=== PATIENT | female | born 1940 | race Caucasian/White ===

== ENCOUNTER 2019-01-29 09:59 | Outpatient (CLI) | payer MEDICARE ==
--- NOTE | 2019-01-29 12:27 | RAD ---
FIVE VIEWS CERVICAL SPINE: HISTORY: Neck pain. Neck tightness and numbness. Cervical radiculopathy. FINDINGS: AP, open-mouth, lateral neutral, lateral flexion and lateral extension views of cervical spine are shi bmitted. On the AP projection, there is mild facet hypertrophy. No malalignment. In the open-mouth projection, lateral masses of C1 and C2 are difficult to assess, with respect to th e right side. Left lateral mass of C1 and C2 articulate appropriately. Limited evaluation of the odontoid process. In the neutral position, no significant spondylolisthesis. Upon extension and flexion, no abnormal mo tion. Predental space is normal. No prevertebral soft tissue swelling. Moderate degenerative change at C5-C6. Mild to moderate degenerative change at C6-C7. IMPRESSION: Degenerative changes of the cervical spine as described above. Further evaluation with MRI if clinica lly warranted. Transcribed Date/Time: 01/29/2019 12:40 PM
== END 2019-01-29 10:00 | disposition home or self-care (01) ==
LOC: TBSIIMAG 09:59
PROVIDERS: ATTEND Surgery
DX: M47.22 Other spondylosis with radiculopathy, cervical region (principal); M54.2 Cervicalgia
CPT/HCPCS: 72050

== ENCOUNTER 2020-07-11 18:15 | Inpatient (IN) | payer MEDICARE ==
[2020-07-11] MEDS ORDERED: Propofol 1,000 MG/100 ML VIAL IV ONE (18:21)
[2020-07-11 18:42] LABS: #Lymphocytes 1.1 thou/uL (1.20-3.40); #Monocytes 0.8 thou/uL (0.11-0.59); #Neutrophils 15.4 thou/uL (1.40-6.50); %Eosinophils 0.1 % (0.0-10.0); %Lymphocytes 6.5 % (21.0-51.0); %Monocytes 4.6 % (0.0-10.0); %Neutrophils 88.8 % (42.0-75.0); Hemoglobin 13.2 g/dL (12.0-16.0); Mean Corpuscular HGB CONC 34.1 g/dL (32.0-36.0); Mean Corpuscular Hemoglobin 32.8 pg (27.0-31.0); Mean Corpuscular Volume 95.9 fL (78.0-98.0); Mean Platelet Volume 7.5 fL (7.4-10.4); Platelet Count 228 thou/uL (130-400); RBC Distribution Width 11.7 % (11.5-14.5); Red Blood Cell (RBC) Count 4.02 mill/uL (4.20-5.40); White Blood Cell (WBC) Count 17.4 thou/uL (4.8-10.8)
[2020-07-11] MEDS ORDERED: Fentanyl CADD 100 ML IV SCH ×2 (18:45→20:45)
[2020-07-11 18:51] LABS: Bilirubin Negative (Negative); Blood, Urine Negative (Negative); Clarity Clear (Clear); Glucose, Urine (Dipstick) 500 mg/dL (Negative); Ketone, Urine 10 mg/dL (Negative); Leukocyte Negative Leu/uL (Negative); Nitrite Negative (Negative); Protein, Urine (Dipstick) Negative (Neg-Trace); Urobilinogen Normal mg/dL (Less than 2); pH, Urine 6.5 (5.0-9.0)
--- NOTE | 2020-07-11 18:55 | RAD ---
PORTABLE CHEST: 07/11/20 PROVIDED CLINICAL HISTORY: Altered mental status. FINDINGS: No comparisons. The cardiac and mediastinal silhouette is within normal limits. Median sternotomy ellie nges, and atherosclerosis are demonstrated. Endotracheal tube is seen, tip of which terminates in the region of the thoracic inlet. Enteric catheter is noted, the tip of which is not visualized but is b elow the diaphragm. No focal consolidation, pleural fluid or pneumothorax evident. The supine nature of the examination is not sensitive for detection of pleural fluid or pneumothorax. IMPRESSION: No evidence for an acute cardiopulmonary process. POS: ARIELA
[2020-07-11 18:58] LABS: Amphetamine Not Detected (NotDetected); Barbiturates Screen Not Detected (NotDetected); Benzodiazepine Screen Not Detected (NotDetected); Cocaine Metabolite Screen Not Detected (NotDetected); Medtox Control Line Valid? VALID (VALID); Medtox Reader # READER 4; Methadone Not Detected (NotDetected); Methamphetamine Not Detected (NotDetected); Opiate Screen Not Detected (NotDetected); Oxycodone Screen Not Detected (NotDetected); Phencyclidine (PCP) Not Detected (NotDetected); THC/Cannabinoid Screen Not Detected (NotDetected); Tricyclic Screen Not Detected (NotDetected)
--- NOTE | 2020-07-11 18:59 | CT ---
CT head noncontrast HISTORY: Altered mental status. FINDINGS: Ventricular system is diffusely distended and predominantly filled with hyperdense material . The fourth ventricle measures up to 2.4 cm transverse diameter. Centered within the medial aspect of the left frontal lobe is an irregular shaped hyperdense heterogeneous mass measuring up to 6.3 cm x 4.4 cm greatest diameters. Appearance of acute hematoma. Very small amount of subarachnoid hemorrhage. Diffuse effacement of the cerebral and cerebellar sulci . Mucosal thickening and nonspecific hyperdense material within the paranasal sinuses. IMPRESSION : Very large left frontal acute intraparenchymal hematoma with intraventricular extension, developing h ydrocephalus, and severe cerebral edema. Findings were called to Dr. Posey in the emergency department at 1852 hours. Code CR.
[2020-07-11 19:00] LABS: ALT (SGPT) 17 U/L (8-55); AST (SGOT) 30 U/L (5-34); Albumin 4.1 g/dL (3.4-4.8); Alkaline Phosphatase 93 U/L (40-110); Anion Gap 15 mmol/L (10-20); BUN (Urea Nitrogen) 8 mg/dL (9.8-20.1); Bilirubin, Total 0.5 mg/dL (0.2-1.2); Calc. Creatinine Clearance 0 mL/min (70-130); Calcium 8.5 mg/dL (7.8-10.44); Carbon Dioxide 22 mmol/L (23-31); Chloride 107 mmol/L (98-107); Globulin 3.4 g/dL (2.4-3.5); Glucose 189 mg/dL (83-110); Protein, Total 7.5 g/dL (5.8-8.1); Sodium 141 mmol/L (136-145)
--- NOTE | 2020-07-11 19:03 | CT ---
CT cervical spine noncontrast HISTORY: Fall. Injury. FINDINGS: Vertebral body heights and alignment are maintained. Multilevel mild disc space narrowing a nd osteophytosis. No acute fracture or dislocation. Cervicothoracic junction is intact. Nasogastric tube and endotracheal catheter partially visualized. Leftward displacement superiorly fav ored to be related to the patient's tongue. Intracranial hemorrhage better detailed on dedicated CT head. IMPRESSION : No acute cervical spine abnormalities are demonstrated.
[2020-07-11 19:08] LABS: Acetaminophen Less than 6.0 mcg/mL (10.0-30.0); Alcohol Less than 10 mg/dL (Less than 10); Magnesium 1.6 mg/dL (1.6-2.6); Potassium 2.9 mmol/L (3.5-5.1); Salicylate Less than 8.0 mg/dL (15.0-30.0)
[2020-07-11 19:28] LABS: INR-International Normal Ratio 1.2; PTT 27.6 sec (22.9-36.1)
[2020-07-11] MEDS ORDERED: niCARdipine 20MG In NaCl 20 MG/200 ML BAG ONE (19:37)
[2020-07-11] MEDS ORDERED: Dexamethasone 10 MG/ML VIAL ONE (19:41)
[2020-07-11] MEDS ORDERED: EPINEPHrine 1 MG/10 ML Abboject SYRINGE ONE (19:52)
[2020-07-11 20:16] LABS: SARS-CoV-2 NAA Rapid Test Not Detected (NotDetected)
[2020-07-11 20:27] LABS: Actual Bicarbonate (HCO3a) 20.6 mEq/L (22-28); Analyzer IN Cardio ER; Base Excess (BEa) -3.6 mEq/L (-2.0 to +3.0); CO2 Tension 34.6 mmHg (35.0-45.0); Calcium, Ionized (arterial) 1.14 mmol/L (1.12-1.30); Carboxyhemoglobin (COHb) 0.3 gm% (0.0-3.0); O2 Tension (PaO2), arterial 158.5 mmHg (> 70.0); Potassium - ABG Lab 2.99 mmol/L (3.70-5.30); pH, Arterial 7.39 (7.35-7.45)
[2020-07-11 20:28] LABS: Puncture Site RBA
[2020-07-11] MEDS ORDERED: Dextrose 50% Abboject 50 ML SYRINGE SLOW IVP PRN (20:28)
[2020-07-11] MEDS ORDERED: HumaLOG 300 UNITS/3 ML VIAL SC PRN (20:28)
[2020-07-11] MEDS ORDERED: Dextrose 5% in Water 1,000 ML IV PRN (20:28)
[2020-07-11] MEDS ORDERED: Norepinephrine 8 MG/0.9% NS 250 ML ONE (20:29)
[2020-07-11] MEDS ORDERED: Ventilator Sedation Protocol 1 EACH FS SCH (20:30)
[2020-07-11] MEDS ORDERED: Fentanyl BOLUS 250 ML IVPB PRN (20:45)
[2020-07-11] MEDS ORDERED: Propofol BOLUS 1,000 MG/100 ML VIAL IV PRN (20:45)
[2020-07-11] MEDS ORDERED: Propofol 1,000 MG/100 ML VIAL IV PRN (20:45)
[2020-07-11] MEDS ORDERED: Morphine 2 MG/ML VIAL SLOW IVP PRN (20:45)
[2020-07-11] MEDS ORDERED: Lorazepam 2 MG/ML VIAL SLOW IVP PRN (20:45)
[2020-07-11] MEDS ORDERED: DISCONTINUE PREVIOUS NARCOTIC PAIN MEDICATIONS AND BENZODIAZEPINES FS SCH (20:45)
--- NOTE | 2020-07-11 21:09 | PDOC.HHP ---
Hospitalist HPI - History of Present Illness AMS History of Present Illness: This is a 80-year-old female patient with a history of CHF, hypertension and diabetes mellitus who was brought in by EMS on account of altered mental status. Patient was found down at home at about noon. It is unclear how long she was and EMS was activated. She was agonal and intubated on site. She was flown by helicopter to the ED where she was further evaluated. CT scan of her brain revealed very large frontal acute intraparenchymal hematoma with intraventricular extension and hydrocephalus. Also had severe cerebral ed jackie. Of note she was on Plavix. Other labs showed a leukocytosis of 17.4, potassium 2.9, troponin 1.7, BNP 166, TSH 0.1. Blood gas showed a pH of 7.36. Urine was negative besides glucose. Covid was negative and UDS was also essentially negative. Chest x-ray showed no acute cardiopulmonary process and CT of his spine showed no acute cervical spine abnormalities. Neurosurgery was consulted. Hospitalist team was consulted for admission. Hospitalist ROS - Review of Systems ROS unobtainable: due to mental status Hospitalist History - Past Medical History Other Medical History: CHF, hypertension and diabetes mellitus - Past Surgical History Other Surgical History: Unable to obtain - Family History Other Family History: Unable to obtain - Social History Other Social History: Unable to obtain - Exam General - other findings: On clinic nurse sedated and unresponsive Eye: anicteric sclera Heart: RRR, no murmur, no gallops Respiratory - other findings: Mechanical breath sounds bilaterally Neurological - other findings: No spontaneous movement Psychiatric - other findings: Unable to assess Hospitalist Results - Labs Result Diagrams: 07/12/20 05:17 07/12/20 05:17 Lab results: WBC 17.4 thou/uL (4.8-10.8) H 07/11/20 18: Hgb 13.2 g/dL (12.0-16.0) 07/11/20 18: Hct 38.5 % (36.0-47.0) 07/11/20 18:23 MCV 95.9 fL (78.0-98.0) 07/11/20 18:23 Plt Count 228 thou/uL (130-400) 07/11/20 18: Neutrophils % 88.8 % (42.0-75.0) H 07/11/20 18:23 ABG pH 7.39 (7.35-7.45) 07/11/20 18:35 ABG pCO2 34.6 mmHg (35.0-45.0) L 07/11/20 18:35 ABG pO2 158.5 mmHg (> 70.0) H 07/11/20 18:35 Sodium 141 mmol/L (136-145) 07/11/20 18:23 Potassium 2.9 mmol/L (3.5-5.1) L* 07/11/20 18:23 Chloride 107 mmol/L (98-107) 07/11/20 18:23 Carbon Dioxide 22 mmol/L (23-31) L 07/11/20 18:23 BUN 8 mg/dL (9.8-20.1) L 07/11/20 18:23 Creatinine 0.81 mg/dL (0.6-1.1) 07/11/20 18:23 Glucose 189 mg/dL (83-110) H 07/11/20 18:23 Calcium 8.5 mg/dL (7.8-10.44) 07/11/20 18:23 Total Bilirubin 0.5 mg/dL (0.2-1.2) 07/11/20 18:23 AST 30 U/L (5-34) 07/11/20 18:23 ALT 17 U/L (8-55) 07/11/20 18:23 Alkaline Phosphatase 93 U/L (40-110) 07/11/20 18:23 CK-MB (CK-2) 16.0 ng/mL (0-6.6) H* 07/11/20 18:23 Troponin I 1.732 ng/mL (< 0.028) H* 07/11/20 18:23 B-Natriuretic Peptide 166.3 pg/mL (0-100) H 07/11/20 18:23 Serum Total Protein 7.5 g/dL (5.8-8.1) 07/11/20 18:23 Albumin 4.1 g/dL (3.4-4.8) 07/11/20 18:23 Urine Ketones 10 mg/dL (Negative) A 07/11/20 18:30 Urine Blood Negative (Negative) 07/11/20 18: Urine Nitrite Negative (Negative) 07/11/20 18:30 Ur Leukocyte Esterase Negative Goldy/uL (Negative) 07/11/20 18:30 Hospitalist H&P A/P - Plan Plan: This a 80-year-old male patient history of hypertension, diabetes who was brought in by ambulance on account of being found down. She was intubated in the field and on presentation found to have a massive intracerebral bleed. Massive intracerebral bleed Currently on ventilator support BP management Neurosurgery consulted for evaluation Hypertension BP variable We will monitor and control as needed. Diabetes mellitus Correctional insulin Monitor glucose. VT prophylaxisSCDs CODE STATUSfor further discussion. Addendum: Neurosurgery evaluated concluded patient was printed from brainstem hemorrhage Plan was to proceed with comfort measures and arrangement for organ donations or possible Patient family has been updated by neurosurgery
[2020-07-11 23:29] VITALS: BMI 21.3
--- NOTE | 2020-07-12 01:39 | CON ---
DATE OF CONSULTATION: 07/11/2020 HISTORY OF PRESENT ILLNESS: Ms. Wharton is a 80-year-old female with a past medical history of CHF, hypertension, diabetes. The patient was last seen down around noon today. When EMS arrived on the scene, the patient was having agonal respirations and was intubated. The patient was flown by helicopter to [facility], in which she received rocuronium and a light sedation. The patient had no movements reported by EMS prior to intubation and sedation given. The patient arrived to the ED unresponsive and intubated. The patient's nephew and niece were here and indicated that Ms. Wharton was on Plavix for a unknown heart condition. Head CT indicated a 6.3 x 4.4 cm left frontal acute intraparenchymal hematoma with hydrocephalus and edema. REVIEW OF SYSTEMS: Negative unless indicated in the above HPI. MEDICATIONS: Plavix confirmed by family. ALLERGIES: NO KNOWN ALLERGY, UNCONFIRMED. PAST MEDICAL HISTORY: CHF, hypertension, diabetes. PAST SURGICAL HISTORY: Noncontributory by family. HOSPITALIZATIONS: Noncontributory by family. SOCIAL HISTORY: Noncontributory by family. PHYSICAL EXAMINATION: VITAL SIGNS: BP 171/69, pulse 91, respirations 14, and temperature 95.9. CONSTITUTION: The patient is comatose. HEENT: Head is atraumatic and normocephalic. Eyes, pupils 5 mm, fixed and dilated bilaterally, not responsive to light. NEUROLOGIC: No response to pain. GCS; eye opening, none; verbal response, none; motor response, none. Pupils, not equal, round, and reactive to light. Left pupil, 5 mm in size, fixed, dilated. Right pupil, 5 mm in size, fixed and dilated. LABORATORY DATA: WBC 17.4, platelets 228. PT 15, INR 1.2, PTT 27.6. Sodium 141. Tox screen is negative. Cervical CT, no abnormalities noted on exam. Head CT, 6.3 x 4.4 cm left frontal acute intraparenchymal hematoma with hydrocephalus and edema. The hemorrhage is in the brainstem. ASSESSMENT: 1. Intraparenchymal hematoma with hydrocephalus and edema. 2. Brainstem hemorrhage. PLAN: ED Medication Service, Cardene to control BP. Damage to brain and brainstem, it is too extensive to offer any meaningful neurosurgical intervention to preserve neuro deficit. Options at this time, the patient can admit to ICU and family could come and say their goodbyes. Family could choose to extubate for comfort care. Family could decide to donate organs since the patient is organ donor. Job ID: [id number] MTDD
[2020-07-12] MEDS ORDERED: Norepinephrine 8 MG/0.9% NS 250 ML ONE ×2 (03:47→19:14)
[2020-07-12 05:29] LABS: #Lymphocytes 1.3 thou/uL (1.20-3.40); #Monocytes 0.4 thou/uL (0.11-0.59); #Neutrophils 10.5 thou/uL (1.40-6.50); %Lymphocytes 10.4 % (21.0-51.0); %Monocytes 3.4 % (0.0-10.0); %Neutrophils 86.2 % (42.0-75.0); Hemoglobin 12.5 g/dL (12.0-16.0); Mean Corpuscular HGB CONC 33.2 g/dL (32.0-36.0); Mean Corpuscular Hemoglobin 31.6 pg (27.0-31.0); Mean Corpuscular Volume 95.5 fL (78.0-98.0); Mean Platelet Volume 7.5 fL (7.4-10.4); Platelet Count 276 thou/uL (130-400); RBC Distribution Width 11.8 % (11.5-14.5); Red Blood Cell (RBC) Count 3.96 mill/uL (4.20-5.40); White Blood Cell (WBC) Count 12.1 thou/uL (4.8-10.8)
[2020-07-12 05:49] LABS: Anion Gap 15 mmol/L (10-20); BUN (Urea Nitrogen) 9 mg/dL (9.8-20.1); Calc. Creatinine Clearance 42 mL/min (70-130); Carbon Dioxide 22 mmol/L (23-31); Chloride 111 mmol/L (98-107); Glucose 220 mg/dL (83-110); Potassium 3.9 mmol/L (3.5-5.1); Sodium 144 mmol/L (136-145)
--- NOTE | 2020-07-12 09:23 | PRG ---
DATE OF SERVICE: I personally examined the patient, reviewed records and imaging, and agreed with documentation of Duong Hooper PA-C, dated 07/11/2020. There is no family around to discuss. Briefly, Samantha Wharton is a 80-year-old woman, who was on Plavix and had acute neurological decline. She was taken to an outside emergency department and transferred here for further care. CT examination of brain revealed a large intraparenchymal hemorrhage in the left frontal lobe with intraventricular extension all the way through the lateral ventricles through the 4th ventricle. There is also hypodensity of the upper brainstem. In the middle of the midbrain, there is a significant hemorrhage that bisects the midbrain suggestive of herniation with Duret hemorrhaging. Overnight, Ms. Wharton's heart rate is picking up, it was in the 130s to even the 150s. Blood pressures have been in the 140s to 170s. On examination, Ms. Wharton has continuous fentanyl infusion, running currently. On the fentanyl, she has pupils that are large, midposition, and nonreactive. I cannot elicit corneal reflex on either side nor a doll's eyes reflex. However, when I turn off the rate on the ventilator, she provides enough negative pressure to trigger assistance from the ventilator. Sodium is 144, white blood cell count is 12.1. Ms. Wharton's scan is incompatible with a reasonable recovery. Her examination does not offer hope either. 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 That decision has not been yet confirmed with family. Her medical care team is aiming to assess her brain status later, but as of now, she does not meet the criteria for brain due to the triggering of the ventilator. Further, the fentanyl infusion makes all testing inconclusive. There is no neurosurgical intervention I would offer in this case. Job ID: [id number]
--- NOTE | 2020-07-12 14:08 | NM ---
Nuclear medicine cerebral blood flow study: 07/12/2020 HISTORY: Intracranial hemorrhage, clinical concern for brain TECHNIQUE: Following the intravenous administration of 27 mCi technetium 99m labeled Ceretec, frontal and lateral imaging of the brain including angiographic phase and delayed phase imaging. FINDINGS: The angiographic phase imaging demonstrates radiotracer activity overlying the common carot id arteries. No intracranial tracer activity is seen on delayed imaging. IMPRESSION: No intracranial radiotracer activity consistent with brain in the proper clinical s etting.
[2020-07-12 16:07] LABS: Actual Bicarbonate (HCO3a) 21.2 mEq/L (22-28); Analyzer IN Cardio ER; Base Excess (BEa) 0.3 mEq/L (-2.0 to +3.0); Calcium, Ionized (arterial) 1.19 mmol/L (1.12-1.30); Carboxyhemoglobin (COHb) 0.3 gm% (0.0-3.0); Hemoglobin (Hb) 13.8 g/dL (12.0-16.0); O2 Tension (PaO2), arterial 178.2 mmHg (> 70.0); Potassium - ABG Lab 3.68 mmol/L (3.70-5.30)
[2020-07-12 16:13] LABS: ALV-art Gradient 147.175 mmHg (0-20); CO2 Tension 24.9 mmHg (35.0-45.0); pH, Arterial 7.55 (7.35-7.45)
[2020-07-12 16:54] LABS: CO2 Tension 27.2 mmHg (35.0-45.0); pH, Arterial 7.48 (7.35-7.45)
[2020-07-12 16:55] LABS: Actual Bicarbonate (HCO3a) 19.8 mEq/L (22-28); Analyzer IN Cardio ER; Base Excess (BEa) -2.4 mEq/L (-2.0 to +3.0); Calcium, Ionized (arterial) 1.21 mmol/L (1.12-1.30); Carboxyhemoglobin (COHb) 0.3 gm% (0.0-3.0); Hemoglobin (Hb) 13.3 g/dL (12.0-16.0); O2 Tension (PaO2), arterial 498.1 mmHg (> 70.0); Potassium - ABG Lab 3.77 mmol/L (3.70-5.30)
[2020-07-12 17:00] LABS: Puncture Site RRA
--- NOTE | 2020-07-12 17:20 | PRG ---
DATE OF SERVICE: 07/12/2020 I was asked to evaluate Ms. Samantha Wharton's neurological function to determine brain . 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 We have documented that she is normo to hyperthermic and documented that she has been off fentanyl since 10:30 this morning, 6 hours and 15 minutes ago. No other sedating medication has been given since the early hours of the morning and multiple half-lives have passed. Ms. Wharton has not demonstrated to the nursing staff or other physicians any neurological function. I came to the bedside. Blood pressure when I entered, it was 116, her pulse was 116. She is on 100% oxygen delivered via endotracheal tube currently at a rate of 16. Her laboratory evaluation shows a sodium of 144. Recent blood gas showed a pCO2 of 24.9. Ventilator rate was adjusted downward and the tidal volume downward and a repeat ABG has not been done. Off all sedation, I do not find neurological function. Specifically, there is no pupillary reaction to light. The pupils are large. They are midposition, and they are nonreactive. There is no corneal reflex to stimulation of the cornea in the V1 and V2 distribution on both sides. There is no doll's eyes reflex. Rapid head turning in all directions shows no vestibulo ocular reflex. Nasogastric tube and endotracheal tube removed both sides of the posterior pharynx and there was no gag. The ventilator rate was briefly turned down, and the patient made respiratory effort. We are awaiting arrival of Respiratory Therapy to check a baseline ABG and began our apnea evaluation. A nuclear medicine study which is an ancillary test to confirm brain in the setting of patients who are unable to be tested for functional status of the respiratory drive was already performed. This nuclear medicine test did not show any radiotracer within the intracranial space. This anatomic study supports brain . My preference is to document an increase in pCO2 of 20 mmHg without any respiratory drive, and I am recommending that we get an ABG as a baseline now, disconnect the ventilator, place a cannula at the candie delivering 100% O2 at 6 L a minute and recheck an ABG in 6 minutes. Results will be documented. Job ID: [id number] [facility]
[2020-07-12 17:32] LABS: Actual Bicarbonate (HCO3a) 24.2 mEq/L (22-28); Analyzer IN Cardio ER; Base Excess (BEa) 0.2 mEq/L (-2.0 to +3.0); Calcium, Ionized (arterial) 1.21 mmol/L (1.12-1.30); Carboxyhemoglobin (COHb) 0.3 gm% (0.0-3.0); Hemoglobin (Hb) 13.4 g/dL (12.0-16.0); Potassium - ABG Lab 3.76 mmol/L (3.70-5.30); pH, Arterial 7.43 (7.35-7.45)
[2020-07-12 17:34] LABS: O2 Tension (PaO2), arterial 540.2 mmHg (> 70.0); Puncture Site RBA
--- NOTE | 2020-07-12 18:19 | PDOC.HOSPP ---
- Subjective Encounter Date: 07/12/20 Encounter Time: 14:30 Subjective: f/u ICH with resp failure on [facility] ventilation. No neurological function noted per nursing and Neurosugery team not recommending any surgical intervention given the clinical findings and CT imaging results. Remains off all sedation and no spontaneous respirations noted on ventilator. - Objective Vital Signs & Weight: Vital Signs (12 hours) Temp Pulse Resp BP Pulse Ox 07/12/20 07:25 138 H 07/12/20 07:00 99.9 F H 136 H 12 173/110 H 100 07/12/20 06:45 97.9 F 85 24 H 144/95 H 100 07/12/20 06:30 97.7 F 85 24 H 139/107 H 100 Weight Admit Weight 132 lb Weight 132 lb 4.438 oz I&O: 07/11/20 07/12/20 07/13/20 06:59 06:59 06:59 Output Total 1500 350 Balance -1500 -350 Result Diagrams: 07/12/20 05:17 07/12/20 05:17 Additional Labs: Accuchecks 07/12/20 07/12/20 07/12/20 12:07 05:22 00:27 POC Glucose 167 H 217 H 214 H Microbiology 07/11/20 18:37 Urine gillette catheter Urine Culture - Preliminary NO GROWTH AT 12 HOURS 07/11/20 18:23 Venous blood - Right Arm Blood Culture - Preliminary Specimen has been received and culture in progress. No Growth to date. 07/11/20 18:23 Venous blood - Left Arm Blood Culture - Preliminary Specimen has been received and culture in progress. No Growth to date. Laboratory Tests 07/11/20 07/11/20 07/11/20 18:23 18:23 18:23 WBC Neutrophils % Potassium 2.9 L* Magnesium 1.6 Troponin I B-Natriuretic Peptide 166.3 H TSH 3rd Generation Influenza A RNA INAAT Influenza B RNA INAAT SARS-CoV-2 Rap RNA(RT-PCR) 07/11/20 07/11/20 07/11/20 18:23 18:23 18:23 WBC 17.4 H Neutrophils % 88.8 H Potassium Magnesium Troponin I 1.732 H* B-Natriuretic Peptide TSH 3rd Generation 0.1821 L Influenza A RNA INAAT Influenza B RNA INAAT SARS-CoV-2 Rap RNA(RT-PCR) 07/11/20 19:20 WBC Neutrophils % Potassium Magnesium Troponin I B-Natriuretic Peptide TSH 3rd Generation Influenza A RNA INAAT Not Detected Influenza B RNA INAAT Not Detected SARS-CoV-2 Rap RNA(RT-PCR) Not Detected Radiology Reviewed by me: Yes (Cerebral Perfusion study - no flow noted in the brain) EKG Reviewed by me: Yes (Tele - A-fib RVR in 120's) - Exam General - other findings: somnolent, unresponsive Eye - other findings: pupils fixed, dilated, no corneal reflex ENT: normocephalic atraumatic, no oropharyngeal lesions ENT - other findings: ETT in place Neck: supple, symmetric, no JVD, no thyromegaly, no lymphadenopathy Heart: irregular Heart - other findings: S1, S2, tachycardic Respiratory: CTAB, no wheezes, no rales, no ronchi Gastrointestinal: soft, non-tender, non-distended, normal bowel sounds, no palpable masses Extremities: no cyanosis, no clubbing, no edema Skin: normal turgor Neurological - other findings: somnolent, unresponsive, no response to tactile/pain/voice Psychiatric: somnolent, lethargic Hosp A/P (1) Intracerebral hemorrhage Code(s): I61.9 - NONTRAUMATIC INTRACEREBRAL HEMORRHAGE, UNSPECIFIED Status: Acute Qualifiers: Laterality: left Plan: Terminal event given extensive involvement, no acute surgical intervention, supportive, pt a registered organ donor and family wishing to pursue donation (2) Acute respiratory failure with hypoxia Code(s): J96.01 - ACUTE RESPIRATORY FAILURE WITH HYPOXIA Status: Acute Plan: s/p intubation with mech ventilation, no spontaneous resp noted, terminal event (3) HTN (hypertension) Code(s): I10 - ESSENTIAL (PRIMARY) HYPERTENSION Status: Chronic Plan: Likely contributing factor to #1 (4) Diabetes mellitus Code(s): E11.9 - TYPE 2 DIABETES MELLITUS WITHOUT COMPLICATIONS Status: Chronic Qualifiers: Diabetes mellitus type: type 2 - Plan plan discussed w/ family, respiratory therapy, DVT proph w/SCDs Consults: Palliative Care Terminal event given extensive ICH, family wishing to pursue organ donation in accordance with pt's wishes Supportive mgmt Cerebral perfusion study showed no flow Recommend extubation and proceed with organ donation per protocol
[2020-07-12 19:10] LABS: Actual Bicarbonate (HCO3a) 22.5 mEq/L (22-28); Analyzer IN Cardio ER; Base Excess (BEa) -1.8 mEq/L (-2.0 to +3.0); CO2 Tension 36.6 mmHg (35.0-45.0); Calcium, Ionized (arterial) 1.22 mmol/L (1.12-1.30); Carboxyhemoglobin (COHb) 0.3 gm% (0.0-3.0); Hemoglobin (Hb) 13.2 g/dL (12.0-16.0); O2 Tension (PaO2), arterial 483.3 mmHg (> 70.0); Potassium - ABG Lab 3.88 mmol/L (3.70-5.30); pH, Arterial 7.41 (7.35-7.45)
[2020-07-12 19:13] LABS: Actual Bicarbonate (HCO3a) 25.5 mEq/L (22-28); Analyzer IN Cardio ER; Base Excess (BEa) -3.2 mEq/L (-2.0 to +3.0); Calcium, Ionized (arterial) 1.28 mmol/L (1.12-1.30); Carboxyhemoglobin (COHb) 0.3 gm% (0.0-3.0); Hemoglobin (Hb) 13.6 g/dL (12.0-16.0); O2 Tension (PaO2), arterial 424.1 mmHg (> 70.0); Potassium - ABG Lab 3.86 mmol/L (3.70-5.30)
[2020-07-12 19:13] LABS: Puncture Site LBA
--- NOTE | 2020-07-12 19:13 | PRG ---
DATE OF SERVICE: 07/12/2020 I resumed the brain examination of Samantha Wharton. We performed an apnea test. The starting pCO2 was 36.6 mmHg. We disconnected the ventilator. She remained off ventilatory support for 7 minutes in total. A followup ABG documented a pCO2 of 62.1 mmHg. This was above our threshold of 60 and a greater than 20 mmHg difference from the original pCO2. Ms. Wharton has no brainstem activity and has failed her apnea test. She has declared brain at 1852 hours on July 12, 2020. Job ID: [id number]
[2020-07-12 19:15] LABS: CO2 Tension 62.1 mmHg (35.0-45.0); Puncture Site LRA; pH, Arterial 7.23 (7.35-7.45)
[2020-07-12 19:38] VITALS: TEMP 98.8
[2020-07-12] MEDS ORDERED: Norepinephrine 8 MG/250 ML IVPB SCH (19:45)
[2020-07-12 20:06] VITALS: BP 113/60
[2020-07-12] MEDS ORDERED: FLU VACC QS2020-21(65YR UP)/PF 240 MCG/0.7 ML SYRINGE IM ONE (21:00)
--- NOTE | 2020-07-13 09:29 | DIS ---
DATE OF ADMISSION: 07/11/2020 DATE OF DISCHARGE: 07/12/2020 DATE OF EXPIRATION: 07/12/2020. FINAL DIAGNOSES: 1. Intracerebral hemorrhage with associated massive cerebral edema. 2. Acute hypoxic respiratory failure. 3. Hypertension. 4. Diabetes mellitus, type 2. CONSULTATIONS: 1. Dr. Kramer with Neurosurgical Service. 2. Dr. Reynoso with Pulmonology Critical Care Service. PERTINENT LABORATORY AND X-RAY FINDINGS: Creatinine ranged between 0.81 to 1.05. Potassium ranged between 2.9 to 3.9, magnesium level 1.6, TSH 0.182, troponin I is 1.73, BNP 166.3. LFTs within normal limits. CBC showed a white blood cell count range between 12.1 to 17.4, hemoglobin ranged between 12.5 to 13.2. PT 15, INR 1.2, PTT 27.6. Urine drug screen dated 07/11/2020, negative. Plasma alcohol level less than 10. COVID-19 PCR not detected, 07/11/2020. Influenza A and B RNA not detected 07/11/2020. Blood cultures x2 dated 07/11/2020 showed no growth to date. Urine culture dated 07/11/2020 showed no growth at [address] of the brain without contrast dated 07/11/2020 showed large left frontal acute intraparenchymal hematoma with intraventricular extension, developing hydrocephalus and severe cerebral edema. Portable chest x-ray dated, 07/11/2020 showed no acute cardiopulmonary process. Endotracheal tube noted in position. CT of the cervical spine dated, 07/11/2020 showed no acute process. Cerebral perfusion study dated, 07/12/2020 showed no intracranial radiotracer activity consistent with brain . HOSPITAL COURSE: The patient was initially admitted after presenting with respiratory failure and being found down at home. Initial CT scan of the brain showed large frontal acute intraparenchymal hematoma with hydrocephalus in severe cerebral edema. The patient was continued on mechanical ventilation and evaluated by the Neurosurgical team. No specific recommendations for acute surgical intervention recommended. The patient remained on ventilatory support without spontaneous respirations. Due to patient's extensive intracranial hematoma, discussions were had with the family regarding comfort care and pursuing organ donation, which patient had expressly stated prior to admission. The patient underwent a cerebral perfusion study showing no evidence of cerebral perfusion consistent with brain . The patient underwent apnea testing including discontinuation of the ventilator showing elevated CO2 levels consistent with apnea and no spontaneous respirations. The patient at 1852 on 07/12/2020. Coordination of pursuing organ donation underway currently. Job ID: [id number]
== END 2020-07-12 18:52 | disposition expired | DRG 64 ==
LOC: ERS 18:15 → ERHOLD 19:53
PROVIDERS: ADMIT Student in an Organized Health Care Education/Training Program; ATTEND Family Medicine
PROC: 0D9670Z Drainage of Stomach with Drainage Device, Via Natural or Artificial Opening (ICD-10-PCS; principal; 2020-07-11)
PROC: 5A1945Z Respiratory Ventilation, 24-96 Consecutive Hours (ICD-10-PCS; 2020-07-11)
PROC: 3E033XZ Introduction of Vasopressor into Peripheral Vein, Percutaneous Approach (ICD-10-PCS; 2020-07-11)
PROC: 06HY33Z Insertion of Infusion Device into Lower Vein, Percutaneous Approach (ICD-10-PCS; 2020-07-11)
DX: I61.3 Nontraumatic intracerebral hemorrhage in brain stem (principal); J96.01 Acute respiratory failure with hypoxia; G93.6 Cerebral edema; I50.9 Heart failure, unspecified; I11.0 Hypertensive heart disease with heart failure; E11.9 Type 2 diabetes mellitus without complications; Z66 Do not resuscitate; Z51.5 Encounter for palliative care; Z20.822 Contact with and (suspected) exposure to COVID-19; D72.829 Elevated white blood cell count, unspecified; Z78.1 Physical restraint status; Z79.01 Long term (current) use of anticoagulants; G91.4 Hydrocephalus in diseases classified elsewhere; R40.20 Unspecified coma
CPT/HCPCS: 0240U; 36415; 36416; 36556; 36600; 36620; 51702; 70450; 71045; 72125; 78610; 80048; 80053; 80306; 80307; 81003; 82553; 82805; 83735; 83880; 84443; 84484; 85025; 85610; 85730; 86850; 86900; 86901; 87040; 87086; 93005; 94002; 94003; 96361; 96365; 96366; 96368; 96375; 96376; 99292; A9521; J0171; J1100; J2704

== ENCOUNTER 2020-07-12 18:52 | Day surgery (SDC) | payer OTHER ==
[2020-07-12 21:38] VITALS: BMI 19.7
[2020-07-12] MEDS ORDERED: Sodium Chloride 0.45% 1,000 ML IV SCH (21:45)
[2020-07-12] MEDS ORDERED: Vasopressin 20 UNIT in Sodium Chloride 0.9% 250 ML 250 ML IV SCH (22:00)
[2020-07-12] MEDS ORDERED: Hydrocortisone Sod Succ/PF 300 MG in Sodium Chloride 0.9% 50 ML IVPB SCH (22:00)
[2020-07-12] MEDS: Sodium Chloride 0.45% 1,000 ML IV SCH (22:20)
[2020-07-12] MEDS: Phytonadione 10 MG in Sodium Chloride 0.9% 50 ML IVPB SCH (22:41)
[2020-07-12] MEDS: Piperacillin/Tazobactam 3.375 GM in Sodium Chloride 0.9% 100 ML IVPB SCH (22:42)
[2020-07-12] MEDS: Norepinephrine 8 MG/0.9% NS 250 ML IVPB SCH (22:57)
[2020-07-12] MEDS ORDERED: Piperacillin/Tazobactam 3.375 GM VIAL ONE (22:57)
[2020-07-12] MEDS: Levothyroxine Sodium 400 MCG in Sodium Chloride 0.9% 100 ML IVPB PRN (22:58)
[2020-07-12 23:27] LABS: Bacteria/HPF None Seen HPF (None Seen); Bilirubin Negative (Negative); Blood, Urine Trace (Negative); Clarity Clear (Clear); Glucose, Urine (Dipstick) Normal (Negative); Ketone, Urine Negative (Negative); Leukocyte Negative Leu/uL (Negative); Nitrite Negative (Negative); Protein, Urine (Dipstick) Negative (Neg-Trace); RBC/HPF 0-3 HPF (0-3); Specific Gravity, Urine 1.005 (1.002-1.036); Squamous Epithelial 0-3 HPF (0-3); Urobilinogen Normal mg/dL (Less than 2); WBC/HPF 0-3 HPF (0-3); pH, Urine 5.5 (5.0-9.0)
[2020-07-13 00:29] LABS: Hemoglobin 11.7 g/dL (12.0-16.0); Mean Corpuscular HGB CONC 33.7 g/dL (32.0-36.0); Mean Corpuscular Hemoglobin 32.9 pg (27.0-31.0); Mean Corpuscular Volume 97.6 fL (78.0-98.0); Mean Platelet Volume 7.9 fL (7.4-10.4); Platelet Count 162 thou/uL (130-400); RBC Distribution Width 12.1 % (11.5-14.5); Red Blood Cell (RBC) Count 3.54 mill/uL (4.20-5.40); White Blood Cell (WBC) Count 23.3 thou/uL (4.8-10.8)
[2020-07-13 00:33] LABS: INR-International Normal Ratio 1.4; PTT 29.3 sec (22.9-36.1); Prothrombin Time 17.1 sec (12.0-14.7)
[2020-07-13 00:42] LABS: Lactic Acid 1.3 mmol/L (0.5-2.2)
[2020-07-13 00:43] LABS: Band 12 % (5-11); Eosinophils 1 % (0-10); Lymphocytes 15 % (21-51); MDiff Complete? YES; Metamyelocyte 1 % (0-0); Monocytes 3 % (0-10); Neutrophil 68 % (42-75); Platelet Morphology Comment Appears Adequate; RBC Morphology Normal
[2020-07-13 00:47] LABS: ALT (SGPT) 17 U/L (8-55); AST (SGOT) 43 U/L (5-34); Albumin 3.4 g/dL (3.4-4.8); Alkaline Phosphatase 75 U/L (40-110); Anion Gap 13 mmol/L (10-20); BUN (Urea Nitrogen) 10 mg/dL (9.8-20.1); Bilirubin, Total 0.6 mg/dL (0.2-1.2); Calc. Creatinine Clearance 50 mL/min (70-130); Calcium 8.2 mg/dL (7.8-10.44); Carbon Dioxide 23 mmol/L (23-31); Chloride 117 mmol/L (98-107); Globulin 3.1 g/dL (2.4-3.5); Glucose 174 mg/dL (83-110); Phosphorus 2.8 mg/dL (2.3-4.7); Potassium 4.1 mmol/L (3.5-5.1); Protein, Total 6.5 g/dL (5.8-8.1); Sodium 149 mmol/L (136-145)
[2020-07-13] MEDS: Phytonadione 10 MG in Sodium Chloride 0.9% 50 ML IVPB SCH (02:38)
[2020-07-13] MEDS ORDERED: Norepinephrine 8 MG/0.9% NS 0 ML ONE (02:53)
[2020-07-13] MEDS: Sodium Chloride 0.45% 1,000 ML IV SCH ×3 (06:13→18:03)
[2020-07-13] MEDS ORDERED: Piperacillin/Tazobactam 3.375 GM VIAL ONE ×4 (06:14→21:31)
[2020-07-13] MEDS: Piperacillin/Tazobactam 3.375 GM in Sodium Chloride 0.9% 100 ML IVPB SCH ×4 (06:18→22:00)
[2020-07-13] MEDS ORDERED: Hydrocortisone Sod Succ/PF 100 mg/2 ml Vial ONE ×3 (06:21→21:31)
[2020-07-13] MEDS: Hydrocortisone Sod Succ/PF 100 mg/2 ml Vial IVP SCH ×3 (06:25→22:00)
[2020-07-13 07:24] LABS: Actual Bicarbonate (HCO3a) 21.9 mEq/L (22-28); Analyzer IN Cardio ER; Base Excess (BEa) -1.8 mEq/L (-2.0 to +3.0); Calcium, Ionized (arterial) 1.16 mmol/L (1.12-1.30); Carboxyhemoglobin (COHb) 0.3 gm% (0.0-3.0); Hemoglobin (Hb) 12.2 g/dL (12.0-16.0); O2 Tension (PaO2), arterial 109.6 mmHg (> 70.0); Potassium - ABG Lab 3.52 mmol/L (3.70-5.30); pH, Arterial 7.43 (7.35-7.45)
[2020-07-13 07:27] LABS: INR-International Normal Ratio 1.3; Prothrombin Time 16.3 sec (12.0-14.7)
[2020-07-13 07:28] LABS: Puncture Site Arterial Line
[2020-07-13 07:28] LABS: PTT 32.9 sec (22.9-36.1)
[2020-07-13 07:35] LABS: Lactic Acid 1.2 mmol/L (0.5-2.2)
--- NOTE | 2020-07-13 07:41 | RAD ---
PORTABLE CHEST: Date: 07/13/2020 PROVIDED CLINICAL HISTORY: Organ donor. FINDINGS: Comparison with 07/11/2020. Cardiac and mediastinal silhouette is unchanged in appearance. Endotracheal tube and enteric catheter are again seen in similar positions. No focal consolidation is evident. The supine nature of the jules dy is not sensitive for detection of pleural fluid or pneumothorax, without gross evidence for such. IMPRESSION: Stable radiographic appearance of the chest. POS: ARIELA
[2020-07-13 07:45] LABS: ALT (SGPT) 20 U/L (8-55); AST (SGOT) 47 U/L (5-34); Albumin 3.5 g/dL (3.4-4.8); Alkaline Phosphatase 74 U/L (40-110); Anion Gap 12 mmol/L (10-20); BUN (Urea Nitrogen) 10 mg/dL (9.8-20.1); Bilirubin, Total 0.6 mg/dL (0.2-1.2); Calc. Creatinine Clearance 55 mL/min (70-130); Calcium 8.2 mg/dL (7.8-10.44); Carbon Dioxide 22 mmol/L (23-31); Chloride 117 mmol/L (98-107); Globulin 2.7 g/dL (2.4-3.5); Glucose 194 mg/dL (83-110); Phosphorus 1.6 mg/dL (2.3-4.7); Potassium 3.6 mmol/L (3.5-5.1); Protein, Total 6.2 g/dL (5.8-8.1); Sodium 147 mmol/L (136-145)
[2020-07-13 07:55] LABS: Hemoglobin 11.2 g/dL (12.0-16.0); Mean Corpuscular HGB CONC 33.6 g/dL (32.0-36.0); Mean Corpuscular Hemoglobin 32.5 pg (27.0-31.0); Mean Corpuscular Volume 96.9 fL (78.0-98.0); Mean Platelet Volume 7.9 fL (7.4-10.4); Platelet Count 158 thou/uL (130-400); RBC Distribution Width 11.8 % (11.5-14.5); Red Blood Cell (RBC) Count 3.44 mill/uL (4.20-5.40); White Blood Cell (WBC) Count 23.4 thou/uL (4.8-10.8)
[2020-07-13] MEDS ORDERED: Magnesium Sulfate 4 GM in Sodium Chloride 0.9% 250 ML 250 ML IVPB SCH (08:30)
[2020-07-13] MEDS ORDERED: Sodium Phosphate 30 MMOL in Sodium Chloride 0.9% 250 ML 250 ML IVPB SCH (08:30)
--- NOTE | 2020-07-13 08:40 | CT ---
CT CHEST AND ABDOMENAND PELVIS WITHOUT CONTRAST: Date: 07/13/2020 PROVIDED CLINICAL HISTORY: Organ donor. FINDINGS: Heart, pericardium, and great vessels are suboptimally evaluated in the absence of IV contrast materi al. Vascular calcification including coronary calcium. Endotracheal tube and enteric catheter in appr opriate position. There is small left pleural fluid with adjacent subsegmental atelectatic change. Pa renchymal scarring is seen involving both upper lobes. The airway appears patent and of normal calibe r. There is no evidence for thoracic lymph node enlargement. The solid abdominal organs are suboptimally evaluated in the absence of IV contrast material but demo nstrate an unremarkable unenhanced CT appearance. There is no bowel dilatation, inflammatory fat stra nding, free fluid, or free air apparent. Conspicuous atherosclerosis. Mobley catheter within urinary b ladder. Bilateral femoral vascular catheters. The osseous structures demonstrate no concerning lytic or blastic lesions. Spinal degenerative change s are seen. IMPRESSION: 1. Atherosclerosis. 2. Left pleural fluid. POS: ARIELA
[2020-07-13 10:58] LABS: Band 2 % (5-11); Lymphocytes 6 % (21-51); MDiff Complete? YES; Monocytes 8 % (0-10); Neutrophil 84 % (42-75); Platelet Morphology Comment Appears Adequate
[2020-07-13 11:49] LABS: INR-International Normal Ratio 1.3; PTT 32.2 sec (22.9-36.1); Prothrombin Time 16.5 sec (12.0-14.7)
[2020-07-13 11:55] LABS: Hemoglobin 10.5 g/dL (12.0-16.0); Mean Corpuscular HGB CONC 33.8 g/dL (32.0-36.0); Mean Corpuscular Hemoglobin 33.2 pg (27.0-31.0); Mean Platelet Volume 7.8 fL (7.4-10.4); Platelet Count 142 thou/uL (130-400); Red Blood Cell (RBC) Count 3.16 mill/uL (4.20-5.40); White Blood Cell (WBC) Count 18.5 thou/uL (4.8-10.8)
[2020-07-13] MEDS ORDERED: Iopamidol 370 76% 100 ML VIAL ONE (12:01)
[2020-07-13 12:12] LABS: Anion Gap 14 mmol/L (10-20); BUN (Urea Nitrogen) 9 mg/dL (9.8-20.1); Calc. Creatinine Clearance 51 mL/min (70-130); Carbon Dioxide 23 mmol/L (23-31); Chloride 119 mmol/L (98-107); Potassium 3.5 mmol/L (3.5-5.1); Sodium 152 mmol/L (136-145)
[2020-07-13 12:13] LABS: ALT (SGPT) 22 U/L (8-55); AST (SGOT) 45 U/L (5-34); Albumin 3.2 g/dL (3.4-4.8); Alkaline Phosphatase 74 U/L (40-110); Bilirubin, Total 0.4 mg/dL (0.2-1.2); Calcium 7.7 mg/dL (7.8-10.44); Globulin 2.5 g/dL (2.4-3.5); Glucose 191 mg/dL (83-110); Magnesium 3.4 mg/dL (1.6-2.6); Phosphorus 4.2 mg/dL (2.3-4.7); Protein, Total 5.7 g/dL (5.8-8.1)
[2020-07-13 12:26] LABS: Lactic Acid 1.2 mmol/L (0.5-2.2)
[2020-07-13 12:56] LABS: Band 3 % (5-11); Lymphocytes 2 % (21-51); MDiff Complete? YES; Monocytes 1 % (0-10); Neutrophil 93 % (42-75); Platelet Morphology Comment Appears Adequate; Reactive Lymphocytes 1 % (0-10)
[2020-07-13 13:17] LABS: Bacteria/HPF None Seen HPF (None Seen); Bilirubin Negative (Negative); Blood, Urine Trace (Negative); Clarity Turbid (Clear); Glucose, Urine (Dipstick) 50 mg/dL (Negative); Ketone, Urine Negative (Negative); Leukocyte Negative Leu/uL (Negative); Nitrite Negative (Negative); Protein, Urine (Dipstick) Negative (Neg-Trace); RBC/HPF 0-3 HPF (0-3); Specific Gravity, Urine 1.015 (1.002-1.036); Squamous Epithelial 0-3 HPF (0-3); Urobilinogen Normal mg/dL (Less than 2); WBC/HPF 0-3 HPF (0-3)
[2020-07-13] MEDS ORDERED: Norepinephrine 8 MG/0.9% NS 250 ML ONE (17:00)
[2020-07-13 19:03] LABS: INR-International Normal Ratio 1.6; Prothrombin Time 18.9 sec (12.0-14.7)
[2020-07-13 19:12] LABS: #Lymphocytes 0.8 thou/uL (1.20-3.40); #Monocytes 0.7 thou/uL (0.11-0.59); #Neutrophils 14.5 thou/uL (1.40-6.50); %Monocytes 4.6 % (0.0-10.0); %Neutrophils 90.4 % (42.0-75.0); Hemoglobin 7.8 g/dL (12.0-16.0); Lactic Acid 0.7 mmol/L (0.5-2.2); Mean Corpuscular HGB CONC 34.4 g/dL (32.0-36.0); Mean Corpuscular Hemoglobin 33.7 pg (27.0-31.0); Mean Corpuscular Volume 97.9 fL (78.0-98.0); Mean Platelet Volume 8.4 fL (7.4-10.4); Platelet Count 105 thou/uL (130-400); RBC Distribution Width 11.9 % (11.5-14.5); Red Blood Cell (RBC) Count 2.32 mill/uL (4.20-5.40); White Blood Cell (WBC) Count 15.5 thou/uL (4.8-10.8)
[2020-07-13 19:23] LABS: MDiff Complete? YES; Platelet Morphology Comment Appears Decreased; Polychromasia SLIGHT = 2-3 cells (100X) (0-2/hpf)
[2020-07-13 19:28] LABS: ALT (SGPT) 13 U/L (8-55); AST (SGOT) 26 U/L (5-34); Albumin 2.8 g/dL (3.4-4.8); Alkaline Phosphatase 49 U/L (40-110); Anion Gap 11 mmol/L (10-20); BUN (Urea Nitrogen) 6 mg/dL (9.8-20.1); Bilirubin, Total 0.4 mg/dL (0.2-1.2); Calc. Creatinine Clearance 68 mL/min (70-130); Calcium 6.3 mg/dL (7.8-10.44); Carbon Dioxide 18 mmol/L (23-31); Chloride 126 mmol/L (98-107); Glucose 155 mg/dL (83-110); Magnesium 2.1 mg/dL (1.6-2.6); Phosphorus 1.4 mg/dL (2.3-4.7); Potassium 2.6 mmol/L (3.5-5.1); Protein, Total 4.8 g/dL (5.8-8.1); Sodium 152 mmol/L (136-145)
[2020-07-13] MEDS ORDERED: Potassium Phosphate 30 MMOL in Sodium Chloride 0.9% 250 ML 250 ML IVPB SCH (20:00)
[2020-07-13] MEDS ORDERED: Calcium Gluconate 4.6 MEQ in Sodium Chloride 0.9% 100 ML IVPB SCH (20:00)
--- NOTE | 2020-07-13 21:06 | CT ---
CT arteriogram abdomen with IV contrast and 3-D imaging HISTORY: Organ donor. Evaluate hepatic arteries. FINDINGS: Good contrast opacification of the abdominal aorta with mild arterial calcification. A sing le right renal artery is present with calcification resulting in approximately 40% stenosis at the origin. A secondary left renal artery arises immediately anterior to the dominant left renal artery. No stenosis. Celiac trunk and the superior and inferior mesenteric arteries are patent. The common hepatic artery gives rise to the proper hepatic artery which, along with the right and lef t hepatic arteries contain nonocclusive small amount of calcification. Right gastric and gastroduodenal arteries are also patent. Liver shows homogeneous enhancement. No mass evident. Minimal fluid adjacent to the inferior margin o f the liver. Distention of the central biliary system consistent with gallbladder absence. Other CT findings are stable compared to the noncontrast exam earlier on the same date. IMPRESSION : Patent normal arterial anatomy to the normal-appearing liver.
[2020-07-13 21:39] LABS: Hemoglobin 8.2 g/dL (12.0-16.0); Platelet Count 106 thou/uL (130-400)
[2020-07-13 23:03] LABS: INR-International Normal Ratio 1.5; PTT 40.5 sec (22.9-36.1)
[2020-07-13] MEDS: Levothyroxine Sodium 400 MCG in Sodium Chloride 0.9% 100 ML IVPB PRN (23:28)
[2020-07-14 00:23] LABS: INR-International Normal Ratio 1.4; PTT 39.1 sec (22.9-36.1); Prothrombin Time 17.8 sec (12.0-14.7)
[2020-07-14 00:35] LABS: Lactic Acid 0.8 mmol/L (0.5-2.2)
[2020-07-14 00:44] LABS: Band 30 % (5-11); Hemoglobin 9.1 g/dL (12.0-16.0); Lymphocytes 8 % (21-51); MDiff Complete? YES; Mean Corpuscular Hemoglobin 33.2 pg (27.0-31.0); Mean Corpuscular Volume 97.6 fL (78.0-98.0); Mean Platelet Volume 8.4 fL (7.4-10.4); Monocytes 5 % (0-10); Neutrophil 57 % (42-75); Platelet Count 120 thou/uL (130-400); Platelet Morphology Comment Appears Decreased; Red Blood Cell (RBC) Count 2.72 mill/uL (4.20-5.40); White Blood Cell (WBC) Count 18.9 thou/uL (4.8-10.8)
[2020-07-14] MEDS: Sodium Chloride 0.45% 1,000 ML IV SCH ×3 (00:45→14:35)
[2020-07-14 01:26] LABS: ALT (SGPT) 17 U/L (8-55); AST (SGOT) 29 U/L (5-34); Albumin 3.2 g/dL (3.4-4.8); Alkaline Phosphatase 69 U/L (40-110); Anion Gap 13 mmol/L (10-20); BUN (Urea Nitrogen) 7 mg/dL (9.8-20.1); Bilirubin, Total 0.6 mg/dL (0.2-1.2); Calc. Creatinine Clearance 57 mL/min (70-130); Carbon Dioxide 19 mmol/L (23-31); Chloride 125 mmol/L (98-107); Globulin 2.6 g/dL (2.4-3.5); Glucose 183 mg/dL (83-110); Magnesium 2.5 mg/dL (1.6-2.6); Phosphorus 2.4 mg/dL (2.3-4.7); Protein, Total 5.8 g/dL (5.8-8.1); Sodium 154 mmol/L (136-145)
[2020-07-14] MEDS ORDERED: Potassium Chloride 40 MEQ in Premix Bag 1 BAG IVPB SCH (01:45)
[2020-07-14 02:14] VITALS: BP 135/59
[2020-07-14] MEDS: Piperacillin/Tazobactam 3.375 GM in Sodium Chloride 0.9% 100 ML IVPB SCH ×2 (04:28→09:50)
[2020-07-14] MEDS: Levothyroxine Sodium 400 MCG in Sodium Chloride 0.9% 100 ML IVPB PRN (04:45)
[2020-07-14] MEDS: Norepinephrine 8 MG/0.9% NS 250 ML IVPB SCH (05:20)
[2020-07-14 06:29] LABS: INR-International Normal Ratio 1.4; PTT 40.1 sec (22.9-36.1); Prothrombin Time 17.5 sec (12.0-14.7)
[2020-07-14] MEDS: Hydrocortisone Sod Succ/PF 100 mg/2 ml Vial IVP SCH ×2 (06:30→14:35)
[2020-07-14 06:37] LABS: Hemoglobin 8.7 g/dL (12.0-16.0); Mean Corpuscular HGB CONC 32.6 g/dL (32.0-36.0); Mean Corpuscular Hemoglobin 32.1 pg (27.0-31.0); Mean Corpuscular Volume 98.4 fL (78.0-98.0); Mean Platelet Volume 8.2 fL (7.4-10.4); Platelet Count 118 thou/uL (130-400); RBC Distribution Width 11.9 % (11.5-14.5); Red Blood Cell (RBC) Count 2.71 mill/uL (4.20-5.40); White Blood Cell (WBC) Count 19.7 thou/uL (4.8-10.8)
[2020-07-14 06:41] LABS: Lactic Acid 0.9 mmol/L (0.5-2.2)
[2020-07-14 06:46] LABS: Band 19 % (5-11); Lymphocytes 1 % (21-51); MDiff Complete? YES; Monocytes 6 % (0-10); Neutrophil 74 % (42-75); Platelet Morphology Comment Appears Decreased
[2020-07-14 06:52] LABS: ALT (SGPT) 15 U/L (8-55); AST (SGOT) 22 U/L (5-34); Alkaline Phosphatase 63 U/L (40-110); Anion Gap 10 mmol/L (10-20); BUN (Urea Nitrogen) 7 mg/dL (9.8-20.1); Bilirubin, Total 0.4 mg/dL (0.2-1.2); Calc. Creatinine Clearance 62 mL/min (70-130); Calcium 7.6 mg/dL (7.8-10.44); Carbon Dioxide 20 mmol/L (23-31); Chloride 129 mmol/L (98-107); Globulin 2.4 g/dL (2.4-3.5); Glucose 180 mg/dL (83-110); Magnesium 2.3 mg/dL (1.6-2.6); Phosphorus 1.8 mg/dL (2.3-4.7); Potassium 3.3 mmol/L (3.5-5.1); Protein, Total 5.4 g/dL (5.8-8.1); Sodium 156 mmol/L (136-145)
[2020-07-14] MEDS ORDERED: Potassium Phosphate 20 MMOL in Sodium Chloride 0.9% 250 ML 250 ML IVPB SCH (07:30)
[2020-07-14 08:07] LABS: Actual Bicarbonate (HCO3a) 19.8 mEq/L (22-28); Analyzer IN Cardio ER; CO2 Tension 35.7 mmHg (35.0-45.0); Calcium, Ionized (arterial) 1.17 mmol/L (1.12-1.30); Carboxyhemoglobin (COHb) 0.2 gm% (0.0-3.0); Hemoglobin (Hb) 9.6 g/dL (12.0-16.0); O2 Tension (PaO2), arterial 237.9 mmHg (> 70.0); Potassium - ABG Lab 3.34 mmol/L (3.70-5.30); pH, Arterial 7.36 (7.35-7.45)
[2020-07-14 08:09] LABS: Puncture Site Arterial Line
[2020-07-14 08:10] VITALS: TEMP 98.8
[2020-07-14 08:10] LABS: ALV-art Gradient 430.475 mmHg (0-20)
--- NOTE | 2020-07-14 08:28 | RAD ---
Exam: Chest one view HISTORY:Organ donor Comparison: 07/13/2020 FINDINGS: Lines and tubes: Stable endotracheal tube, nasogastric tube Cardiac silhouette: Normal stable sternotomy. Aorta: Unremarkable Pulmonary vessels: Normal Costophrenic angles: Clear LUNGS: Stable hyperinflation. Stable bilateral apical pleural thickening. Pneumothorax: None Osseous abnormalities: None IMPRESSION: No significant interval change.
[2020-07-14] MEDS ORDERED: Calcium Gluconate 4.6 MEQ in Sodium Chloride 0.9% 100 ML IVPB SCH (09:00)
[2020-07-14 12:19] LABS: #Lymphocytes 1.1 thou/uL (1.20-3.40); #Neutrophils 17.5 thou/uL (1.40-6.50); %Lymphocytes 5.7 % (21.0-51.0); %Monocytes 4.8 % (0.0-10.0); %Neutrophils 89.4 % (42.0-75.0); Hemoglobin 9.1 g/dL (12.0-16.0); Mean Corpuscular HGB CONC 33.1 g/dL (32.0-36.0); Mean Corpuscular Hemoglobin 33.1 pg (27.0-31.0); Mean Platelet Volume 8.3 fL (7.4-10.4); Platelet Count 107 thou/uL (130-400); Red Blood Cell (RBC) Count 2.75 mill/uL (4.20-5.40); White Blood Cell (WBC) Count 19.6 thou/uL (4.8-10.8)
[2020-07-14 12:25] LABS: INR-International Normal Ratio 1.4; PTT 36.2 sec (22.9-36.1)
[2020-07-14 12:49] LABS: ALT (SGPT) 16 U/L (8-55); AST (SGOT) 19 U/L (5-34); Albumin 3.1 g/dL (3.4-4.8); Alkaline Phosphatase 70 U/L (40-110); Anion Gap 11 mmol/L (10-20); BUN (Urea Nitrogen) 7 mg/dL (9.8-20.1); Bilirubin, Total 0.5 mg/dL (0.2-1.2); Calc. Creatinine Clearance 60 mL/min (70-130); Calcium 8.6 mg/dL (7.8-10.44); Carbon Dioxide 23 mmol/L (23-31); Chloride 128 mmol/L (98-107); Globulin 2.7 g/dL (2.4-3.5); Glucose 199 mg/dL (83-110); Magnesium 2.4 mg/dL (1.6-2.6); Phosphorus 2.4 mg/dL (2.3-4.7); Potassium 3.7 mmol/L (3.5-5.1); Protein, Total 5.8 g/dL (5.8-8.1); Sodium 158 mmol/L (136-145)
[2020-07-14 14:08] LABS: Bacteria/HPF None Seen HPF (None Seen); Bilirubin Negative (Negative); Blood, Urine Trace (Negative); Clarity Clear (Clear); Glucose, Urine (Dipstick) Normal (Negative); Ketone, Urine Negative (Negative); Leukocyte Negative Leu/uL (Negative); Nitrite Negative (Negative); Protein, Urine (Dipstick) 10 mg/dL (Neg-Trace); RBC/HPF 0-3 HPF (0-3); Specific Gravity, Urine 1.016 (1.002-1.036); Squamous Epithelial 0-3 HPF (0-3); Urobilinogen Normal mg/dL (Less than 2); WBC/HPF 0-3 HPF (0-3)
== END 2020-07-12 18:53 ==
LOC: ERS 18:52 → SDC 18:53
DX: Z52.6 Liver donor (principal)
CPT/HCPCS: 36415; 71045; 71250; 74175; 74177; 80053; 81001; 81003; 81015; 82248; 82805; 83605; 83735; 84100; 85025; 85384; 85610; 85730; 94002; 94003; J1720; J2001; J2543; J3430; J3475; J3480; J3490; J7050; P9045; Q9967